=== PATIENT | male | born 1985 | race Caucasian/White ===

== ENCOUNTER 2018-05-03 22:38 | Emergency (ER) | payer OTHER ==
[~2018-05-03] VITALS: Ht 175.3 cm; Wt 104.0 kg
[2018-05-03] MEDS ORDERED: KETOROLAC 30 MG/1 ML ONE (23:12)
[2018-05-03] MEDS ORDERED: PROCHLORPERAZINE 5 MG/ML, 2ML ONE (23:12)
[2018-05-03] MEDS ORDERED: SODIUM CHLORIDE 0.9% 1,000ML IVBOLUS ONE (23:30)
[2018-05-03] MEDS ORDERED: KETOROLAC 30 MG/1 ML IVPush ONE (23:30)
[2018-05-03] MEDS ORDERED: PROCHLORPERAZINE 5 MG/ML, 2ML IVPush ONE (23:30)
[2018-05-03] MEDS ORDERED: DIPHENHYDRAMINE 50 MG/ML, 1ML IVPush ONE (23:30)
[2018-05-04 00:23] VITALS: BP 166/92
== END 2018-05-04 00:26 | disposition home or self-care (01) ==
LOC: ED 23:50
DX: R51 Headache (principal)
CPT/HCPCS: 96374; 96375; 99285; J0780; J1885; J7030

== ENCOUNTER 2019-12-25 19:12 | Emergency (ER) | payer OTHER ==
[~2019-12-25] VITALS: Ht 175.3 cm; Wt 105.3 kg
[2019-12-25 19:14] VITALS: BP 153/98
[2019-12-25] MEDS ORDERED: SODIUM CHLORIDE FLUSH 10ML SYR IVF ONE (20:00)
[2019-12-25 20:16] LABS: BASOPHILS # (AUTO) 0.03 x10^3/uL (0-0.1); BASOPHILS % (AUTO) 0 % (0-1); EOSINOPHILS # (AUTO) 0.08 x10^3/uL (0-0.4); EOSINOPHILS % (AUTO) 1 % (1-7); LYMPHOCYTES # (AUTO) 2.18 x10^3/uL (1-3.4); LYMPHOCYTES % (AUTO) 23 % (22-44); MD NO; MEAN CORPUSCULAR HEMOGLOBIN 30.4 pg (27.5-34.5); MEAN CORPUSCULAR VOLUME 89.5 fL (81-97); MEAN PLATELET VOLUME 8.4 fL (7.4-10.4); MONOCYTES # (AUTO) 0.98 x10^3/uL (0.2-0.8); MONOCYTES % (AUTO) 10 % (2-9); NEUTROPHILS # (AUTO) 6.14 x10^3/uL (1.8-6.8); NEUTROPHILS % (AUTO) 65 % (42-75); PLATELET COUNT 296 x10^3/uL (130-400); RED BLOOD COUNT 4.49 x10^6/uL (4.38-5.82); RED CELL DISTRIBUTION WIDTH 14.1 % (9.4-14.8)
[2019-12-25 20:27] LABS: ALANINE AMINOTRANSFERASE 38 U/L (12-78); ALBUMIN 3.7 g/dL (3.4-5.0); ANION GAP 7 mmol/L (5-15); CALCIUM 8.3 mg/dL (8.5-10.1); CHLORIDE 108 mmol/L (98-107); CREATININE 0.84 mg/dL (0.7-1.3)
[2019-12-25 20:29] LABS: ALKALINE PHOSPHATASE 88 U/L (45-117); BILIRUBIN,TOTAL 0.5 mg/dL (0.2-1.0); TOTAL PROTEIN 7.4 g/dL (6.4-8.2)
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
--- NOTE | 2019-12-25 21:33 | NUR ---
PT RESTING IN [facility]. PT TO BE ADMITTED. PT EDUCATED ON PLAN OF CARE PT REMOVED BP CUFF AND PULSE OX 2 TIMES NOW AND DOES NOT WANT THEM ON HIM
[2019-12-25] MEDS ORDERED: LIDOCAINE-MPF 1%, 5ML ONE (21:49)
[2019-12-25] MEDS ORDERED: LIDOCAINE 1%, 10ML INFIL ONE (22:00)
[2019-12-25] MEDS ORDERED: HYDROcodone/APAP 5/325 TABLET ONE (22:10)
[2019-12-25] MEDS ORDERED: HYDROcodone/APAP 5/325 TABLET PO ONE (22:30)
[2019-12-26] MEDS ORDERED: OMNIPAQUE 350 MG/ML, 100ML BOTTLE ONE (00:10)
== END 2019-12-25 22:26 | disposition home or self-care (01) ==
LOC: ED 21:01
DX: K61.1 Rectal abscess (principal)
CPT/HCPCS: 36415; 46040; 74177; 80053; 85025; 99285; Q9967

== ENCOUNTER 2020-05-10 00:03 | Emergency (ER) | payer OTHER ==
[~2020-05-10] VITALS: Ht 175.3 cm; Wt 102.0 kg
[2020-05-10 00:05] VITALS: BP 148/89
--- NOTE | 2020-05-10 00:36 | NUR ---
ONLINE TUTOR RN: PT WALKED BACK FROM LOBBY TO ROOM AT THIS TIME. STEADY UPON AMBULATION. NO ACUTE DISTRESS NOTED AT THIS TIME.
[2020-05-10] MEDS ORDERED: LIDOCAINE 1%-EPI 1:100K, 20ML ONE (00:52)
[2020-05-10] MEDS ORDERED: LORazepam 1MG TABLET ONE (00:52)
[2020-05-10] MEDS ORDERED: LORazepam 1MG TABLET PO ONE (01:00)
[2020-05-10] MEDS ORDERED: LIDOCAINE 1%-EPI 1:100K, 20ML INFIL ONE (01:00)
--- NOTE | 2020-05-10 01:19 | NUR ---
I&D SETUP AT BEDSIDE. PT MEDICATED PER OCT. UPDATED ON PLAN OF CARE. VERBALIZES UNDERSTANDING, AND DENIES ANY FURTHER NEEDS OR CONCERNS AT THIS TIME. CALL LIGHT IN REACH.
== END 2020-05-10 01:48 | disposition home or self-care (01) ==
LOC: ED 01:13
DX: K61.1 Rectal abscess (principal)
CPT/HCPCS: 46040; 87070; 87077; 87205; 99284